=== PATIENT | male | born 1965 | race American Indian/Alaskan Native ===

== ENCOUNTER 2017-07-18 13:58 | Observation (INO) | payer SELFPAY ==
[2017-07-18] MEDS ORDERED: Naproxen 550 mg Tab PO STA (15:33)
[2017-07-18] MEDS ORDERED: Naproxen 550 mg Tab PO ONE (15:48)
--- NOTE | 2017-07-18 17:13 | C.PDOC ---
History Of Present Illness 52 y/o male presents to ED with complaints of right ear pain intermittently for 1 year. (+) decreased hearing. Patient was recently evaluated by ENT and treated with antibiotics, steroids and instructed to get biopsy which he has scheduled at the end of this month. Patient notes pain worsened since Tuesday. Patient denies fever, chills, discharge, headache or any other complaints at this time. Time Seen by Provider: 07/18/17 14:32 Chief Complaint (Nursing): ENT Problem History Per: Patient History/Exam Limitations: None Onset/Duration Of Symptoms: Days Current Symptoms Are (Timing): Still Present Past Medical History Reviewed: Historical Data, Nursing Documentation, Vital Signs Vital Signs: Last Vital Signs Temp 97.7 F 07/18/17 19:50 Pulse 57 L 07/18/17 20:30 Resp 20 07/18/17 19:50 BP 141/91 H 07/18/17 19:50 Pulse Ox 98 07/18/17 19:50 - Medical History PMH: No Chronic Diseases Surgical History: No Surg Hx Family History: States: No Known Family Hx - Social History Hx Tobacco Use: No Hx Alcohol Use: No Hx Substance Use: No - Immunization History Hx Tetanus Toxoid Vaccination: No Hx Influenza Vaccination: No Hx Pneumococcal Vaccination: No Review Of Systems Constitutional: Negative for: Fever, Chills ENT: Positive for: Ear Pain. Negative for: Ear Discharge Cardiovascular: Negative for: Chest Pain Respiratory: Negative for: Shortness of Breath Skin: Negative for: Rash Neurological: Negative for: Weakness, Numbness Physical Exam - Physical Exam Appears: Non-toxic, No Acute Distress Skin: Normal Color, Warm, Dry, No Rash Head: Atraumatic, Normacephalic Eye(s): bilateral: Normal Inspection, EOMI Ear(s): Bilateral: Normal Nose: Normal Oral Mucosa: Moist Throat: Normal, No Erythema, No Exudate Chest: Symmetrical Respiratory: No Accessory Muscle Use Neurological/Psych: Oriented x3, Normal Speech ED Course And Treatment - Laboratory Results Result Diagrams: 07/18/17 17:44 07/18/17 17:44 O2 Sat by Pulse Oximetry: 97 (RA) Pulse Ox Interpretation: Normal - CT Scan/US Mastoids w/o contrast Other Rad Studies (CT/US): Interpreted By Me, Read By Radiologist CT/US Interpretation: PROCEDURE: CT scan temporal bones dated 07/18/2017. HISTORY: Hearing g loss, pain, r/o mastoiditis, include tempo. COMPARISON: None available. TECHNIQUE: High resolution axial images of the temporal bones were obtained. Coronal and sagittal reformats were generated. Radiation dose: Total exam DLP = 757.96 mGy-cm. This CT exam was performed using one or more of the following dose reduction techniques: Automated exposure control, adjustment of the mA and/or kV according to patient size, and/or use of iterative reconstruction technique. FINDINGS: RIGHT TEMPORAL BONE: RIGHT MIDDLE EAR: Normal. RIGHT INNER EAR: Cochlea: Normal. Semicircular canals: Normal. RIGHT MASTOID AIR CELLS: There is subtotal opacification right mastoid air complex with some sparing of the mastoid antrum. Soft tissue also seen fills most of the middle ear canal in circumferentially surrounds the inferior margin of the mid ossicular chain extending into Prussak space as well however the drum spur is intact. The anterior pleural. RIGHT INTERNAL AUDITORY CANAL: Normal. RIGHT EXTERNAL AUDITORY CANAL: Normal. RIGHT VESTIBULAR AND COCHLEAR AQUEDUCT: Normal. OTHER FINDINGS: None. LEFT TEMPORAL BONE: LEFT MIDDLE EAR: Normal. LEFT INNER EAR: Cochlea: Normal. Semicircular canals: Normal. LEFT MASTOID AIR CELLS: Normal. LEFT INTERNAL AUDITORY CANAL: Normal. LEFT EXTERNAL AUDITORY CANAL: Normal. LEFT VESTIBULAR AND COCHLEAR AQUEDUCTS: Normal. OTHER FINDINGS: None. IMPRESSION: Findings consistent with right-sided mastoiditis as above. . 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 - Scribe Statement The provider has reviewed the documentation as recorded by the Carmencita Fierro All medical record entries made by the Carmencita were at my direction and personally dictated by me. I have reviewed the chart and agree that the record accurately reflects my personal performance of the history, physical exam, medical decision making, and the department course for this patient. I have also personally directed, reviewed, and agree with the discharge instructions and disposition.
[2017-07-18] MEDS ORDERED: Sodium Chloride 0.9% 500 ML IV ONE ×2 (17:26→17:59)
[2017-07-18] MEDS ORDERED: cefTRIAXone IV 1 gm in Dextros 50 ML IV ONE (17:27)
[2017-07-18 17:50] LABS: BASO % 0.6 % (0.0-2.0); EOS # 0.1 K/uL (0.0-0.7); EOS % 2.4 % (0.0-4.0); HEMATOCRIT 41.7 % (35.0-51.0); LYMPH # 1.5 K/uL (1.0-4.3); LYMPH % 41.7 % (20.0-40.0); MEAN CELL VOLUME 91.9 fL (80.0-94.0); MEAN CORPUSCULAR HEMOGLOBIN 31.6 pg (27.0-31.0); MEAN CORPUSCULAR HGB CONC 34.4 g/dL (33.0-37.0); MEAN PLATELET VOLUME 7.9 fL (7.2-11.7); MONO # 0.4 K/uL (0.0-0.8); MONO % 11.8 % (0.0-10.0); RED CELL DISTRIBUTION WIDTH 14.2 % (11.5-14.5); WHITE BLOOD COUNT 3.6 K/uL (4.8-10.8)
[2017-07-18] MEDS ORDERED: cefTRIAXone IV 1 gm in Dextros 50 ML IVPB ONE (17:59)
[2017-07-18 18:03] LABS: CHLORIDE 101 mmol/L (98-107); SODIUM 135 mmol/L (132-148)
[2017-07-18 18:04] LABS: POTASSIUM 4.3 mmol/L (3.6-5.2)
[2017-07-18 18:06] LABS: ALB/GLOB RATIO 1.1 (1.0-2.1); ALKALINE PHOSPHATASE 40 U/L (38-126); AST/SGOT 40 U/L (17-59); BILIRUBIN,TOTAL 0.6 mg/dL (0.2-1.3); BLOOD UREA NITROGEN 19 mg/dL (9-20); CARBON DIOXIDE 26 mmol/L (22-30); GFR AFRICAN-AMERICAN > 60; GLUCOSE,RANDOM 76 mg/dL (75-110); TOTAL PROTEIN 7.8 g/dL (6.3-8.3)
[2017-07-18 18:07] LABS: ALT/SGPT 41 U/L (21-72); CALCIUM 9.2 mg/dl (8.6-10.4)
[2017-07-18] MEDS ORDERED: Clindamycin 600mg/50ml NS 600 MG/50 ML BAG IVPB ONE (18:43)
[2017-07-18] MEDS ORDERED: Clindamycin 600mg/50ml D5W 600 MG/50 ML VIAL IVPB SCH (18:45)
[2017-07-18] MEDS ORDERED: Morphine 4 MG/ML VIAL IV ONE (18:58)
[2017-07-18] MEDS ORDERED: Clindamycin 600mg/50ml D5W 600 MG/50 ML VIAL IVPB ONE (19:00)
[2017-07-18] MEDS ORDERED: Morphine 4 MG/ML VIAL ONE (19:07)
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
[2017-07-18 20:57] VITALS: RESP 20
[2017-07-18] MEDS ORDERED: Influenza Vaccine 60 mcg/0.5 mL SYR (4YR UP) IM ONE (21:00)
[2017-07-18] MEDS ORDERED: Pneumococcal 23-Valent Vaccine IM ONE (21:00)
[2017-07-18] MEDS ORDERED: Moxifloxacin IV 400mg/250ml NS 400 MG/250 ML BAG IVPB SCH (21:15)
[2017-07-19 06:20] LABS: BASO % 0.8 % (0.0-2.0); EOS # 0.1 K/uL (0.0-0.7); EOS % 3.1 % (0.0-4.0); HEMATOCRIT 39.1 % (35.0-51.0); LYMPH # 1.7 K/uL (1.0-4.3); LYMPH % 50.7 % (20.0-40.0); MEAN CELL VOLUME 92.1 fL (80.0-94.0); MEAN CORPUSCULAR HEMOGLOBIN 31.2 pg (27.0-31.0); MEAN CORPUSCULAR HGB CONC 33.9 g/dL (33.0-37.0); MEAN PLATELET VOLUME 8.5 fL (7.2-11.7); MONO # 0.4 K/uL (0.0-0.8); MONO % 11.9 % (0.0-10.0); RED CELL DISTRIBUTION WIDTH 14.1 % (11.5-14.5); WHITE BLOOD COUNT 3.4 K/uL (4.8-10.8)
[2017-07-19 07:29] LABS: CHLORIDE 105 mmol/L (98-107); POTASSIUM 4.4 mmol/L (3.6-5.2); SODIUM 136 mmol/L (132-148)
[2017-07-19 07:31] LABS: ALB/GLOB RATIO 1.1 (1.0-2.1); ALKALINE PHOSPHATASE 33 U/L (38-126); ALT/SGPT 38 U/L (21-72); AST/SGOT 32 U/L (17-59); BILIRUBIN,TOTAL 0.5 mg/dL (0.2-1.3); BLOOD UREA NITROGEN 20 mg/dL (9-20); CARBON DIOXIDE 23 mmol/L (22-30); GFR AFRICAN-AMERICAN > 60; TOTAL PROTEIN 6.5 g/dL (6.3-8.3)
[2017-07-19 07:32] LABS: CALCIUM 8.4 mg/dl (8.6-10.4); GLUCOSE,RANDOM 78 mg/dL (75-110)
--- NOTE | 2017-07-19 07:49 | CP.PCM.PN ---
Subjective - Date & Time of Evaluation Date of Evaluation: 07/19/17 Time of Evaluation: 07:00 - Subjective Subjective: Medicine Note for Dr. Luz Patient seen and examined at bedside. Denied fever, chills, headache, chest pain, SOB, abdominal pain, n/v/d/c, or urinary symptoms. Objective - Vital Signs/Intake and Output Vital Signs (last 24 hours): Temp Pulse Resp BP Pulse Ox 97.8 F 56 L 20 133/83 97 07/19/17 07:36 07/19/17 07:36 07/19/17 07:36 07/19/17 07:36 07/19/17 07:36 Intake and Output: 07/19/17 07/19/17 06:59 18:59 Intake Total 50 Balance 50 - Medications Medications: Current Medications Famotidine (Pepcid) 20 mg PO BID SOTO Ceftriaxone Sodium 1 gm/ (Sodium Chloride) 100 mls @ 100 mls/hr IVPB Q12H SOTO Pseudoephedrine HCl (Sudafed Tab) 30 mg PO Q6 SOTO Last Admin: 07/19/17 05:59 Dose: Not Given - Labs Labs: 07/19/17 06:07 07/19/17 06:07 - Additional Findings Additional findings: - Constitutional Appears: No Acute Distress - Head Exam Head Exam: ATRAUMATIC, NORMAL INSPECTION - Eye Exam Eye Exam: EOMI, Normal appearance Pupil Exam: PERRL - ENT Exam ENT Exam: Mucous Membranes Moist - Neck Exam Neck exam: Positive for: Full Rom. Negative for: Lymphadenopathy, Tenderness - Respiratory Exam Respiratory Exam: Clear to Auscultation Bilateral, NORMAL BREATHING PATTERN. absent: Rhonchi, Wheezes, Respiratory Distress - Cardiovascular Exam Cardiovascular Exam: REGULAR RHYTHM, +S1, +S2 - GI/Abdominal Exam GI & Abdominal Exam: Normal Bowel Sounds, Soft. absent: Distended, Mass, Tenderness - Extremities Exam Extremities exam: Positive for: normal inspection. Negative for: calf tenderness, pedal edema, tenderness - Neurological Exam Neurological exam: Alert, Oriented x3 - Psychiatric Exam Psychiatric exam: Normal Affect, Normal Mood - Skin Skin Exam: Dry, Intact, Normal Color, Warm Assessment and Plan - Assessment and Plan (Free Text) Plan: Mastoiditis ENT consulted- Dr. Conrad, help appreciated Facial bones CT: right sided mastoiditis NPO- pending Dr. Conrad's recommendations; ?consider myringotomy or biospy Blood cx: f/u results HIV1&2 Ab: f/u results Started Rocephin 1gm IV Q12H Started Pseudophedrine 30mg PO Q6 Prophylactic measure Pepcid 20mg PO BID Patient has low risk factors and therefore does not need anticoagulation Ambulation, activity as tolerated DW Dr. Luz, Apryl CANTOR, PGY-1
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
[2017-07-19] MEDS: Clindamycin 300 MG in Sodium Chloride 0.9% 50 ML IVPB SCH ×2 (09:45→14:33)
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
[2017-07-19 15:58] VITALS: BP 153/97; PULSE 62; TEMP 98.4; O2SAT 100
--- NOTE | 2017-07-19 17:29 | CON ---
DATE: 07/19/2017 REASON FOR CONSULTATION: Ear pain on the right. HISTORY OF PRESENT ILLNESS: This is a 52-year-old male with right ear pain for days, has been on antibiotics and has recently worsened. There is hearing loss, this is moderate and constant intensity. PAST MEDICAL HISTORY: As noted in the chart by me. MEDICATIONS: As noted in the chart by me. PHYSICAL EXAMINATION HEAD: Atraumatic and normocephalic. FACE: Good facial movements bilaterally. CONSTITUTIONAL: Well fed, well nourished. COMMUNICATION: Communicates well appropriately. EXTERNAL NOSE: No masses. No lesions. No erythema. No edema. EARS: TMs intact on both sides with fluid noted behind the right TM. NECK: Supple. THYROID: No thyromegaly. No goiter. LYMPH NODES: No lymphadenopathy of the neck. ORAL CAVITY AND OROPHARYNX: No masses. No lesions. No erythema. No edema. LABORATORY DATA: CAT scan was reviewed by me which shows otitis media and non-infected mastoiditis since the air cells attic area which we saw in the middle ear to the mastoids are clear. RECOMMENDATIONS: Recommend antibiotics and steroids. If the patient's pain improves, the patient can be discharged home on p.o. antibiotics. Garry Conrad MD
== END 2017-07-19 16:45 | disposition home or self-care (01) ==
LOC: C.ER 13:58 → C.9E 18:38 → C.3T 19:28
PROVIDERS: ADMIT Hospitalist; ATTEND Hospitalist
DX: H70.11 Chronic mastoiditis, right ear (principal); H91.91 Unspecified hearing loss, right ear; J31.0 Chronic rhinitis
CPT/HCPCS: 36415; 70480; 80053; 83036; 85025; 86703; 87040; 96365; 96366; 96367; 96375; 99285; G0378; J0696; J1100; J2270; J2405; J7040

== ENCOUNTER 2018-05-30 01:31 | Emergency (ER) | payer SELFPAY ==
[2018-05-30 01:41] VITALS: O2SAT 95
--- NOTE | 2018-05-30 02:49 | C.PDOC ---
History Of Present Illness 52 year old male presents to the ED c/o intermittent lower back pain for the past month. Patient states he fell and injured his back a month ago. Patient had imagingss done which were negative and was prescribed percocet. Patient states percocet no longer helping with the pain. Patient denies new injury, fall , trauma, weakness, numbness, bowel incontinence, saddle anesthesia. Time Seen by Provider: 05/30/18 01:54 Chief Complaint (Nursing): Back Pain History Per: Patient History/Exam Limitations: no limitations Onset/Duration Of Symptoms: Days Current Symptoms Are (Timing): Still Present Quality Of Discomfort: "Pain" Previous Symptoms: Back Pain Recent travel outside of the [place]: No Additional History Per: Patient Past Medical History Reviewed: Historical Data, Nursing Documentation, Vital Signs Vital Signs: Last Vital Signs Temp 98.2 F 05/30/18 02:50 Pulse 60 05/30/18 02:50 Resp 18 05/30/18 02:50 BP 136/81 05/30/18 02:50 Pulse Ox 95 05/30/18 03:00 - Medical History PMH: Back Problems Surgical History: No Surg Hx Family History: States: Unknown Family Hx - Social History Hx Tobacco Use: No Hx Alcohol Use: No Hx Substance Use: No - Immunization History Hx Tetanus Toxoid Vaccination: No Hx Influenza Vaccination: No Hx Pneumococcal Vaccination: No Review Of Systems Constitutional: Negative for: Fever, Chills Cardiovascular: Negative for: Chest Pain, Palpitations Respiratory: Negative for: Cough, Shortness of Breath Genitourinary: Negative for: Incontinence Musculoskeletal: Positive for: Back Pain Skin: Negative for: Rash Neurological: Negative for: Weakness, Numbness Physical Exam - Physical Exam Appears: Non-toxic, No Acute Distress Skin: Normal Color, Warm, Dry Head: Atraumatic, Normacephalic Eye(s): bilateral: Normal Inspection Oral Mucosa: Moist Neck: Normal ROM, Supple Chest: Symmetrical Cardiovascular: Rhythm Regular Respiratory: Normal Breath Sounds, No Rales, No Rhonchi, No Wheezing Gastrointestinal/Abdominal: Soft, No Tenderness, No Guarding, No Rebound Back: Paraspinal Tenderness (left paraspinal), No Straight Leg Raising Extremity: Normal ROM, No Tenderness, No Swelling Neurological/Psych: Oriented x3, Normal Speech, Normal Motor, Normal Sensation Gait: Steady ED Course And Treatment O2 Sat by Pulse Oximetry: 95 (ON RA) Pulse Ox Interpretation: Normal Progress Note: Plan: - Valium 5 mg PO. - Toradol 30 mg IM. On reassessment, patient is resting comfortably, with improvement of back pain. Patient remains afebrile, with no bony tenderness, extremity numbness or weakness, or abdominal pain. Patient is ambulatory in the emergency department with no signs of discomfort. Patient was advised to follow up with physician/clinic in 1-2 days. Disposition Counseled Patient/Family Regarding: Diagnosis, Need For Followup - Disposition Referrals: Randall Young MD [Medical Doctor] - Disposition: HOME/ ROUTINE Disposition Time: 02:47 Condition: STABLE Additional Instructions: please follow up with your doctor Take meds as directed Return to ER if worse Prescriptions: Cyclobenzaprine [Cyclobenzaprine HCl] 10 mg PO HS #10 tab Ibuprofen [Motrin] 600 mg PO Q6H #20 tab Instructions: Low Back Pain (DC) Forms: [employer] (Northern Irish) - Clinical Impression Clinical Impression: Low back pain - PA / ESCAPEMENT MAKER / Resident Statement MD/DO has reviewed & agrees with the documentation as recorded. - Scribe Statement The provider has reviewed the documentation as recorded by the Scribe Meño Yang All medical record entries made by the Scribe were at my direction and personally dictated by me. I have reviewed the chart and agree that the record accurately reflects my personal performance of the history, physical exam, medical decision making, and the department course for this patient. I have also personally directed, reviewed, and agree with the discharge instructions and disposition.
[2018-05-30 03:01] VITALS: BP 136/81; PULSE 60; RESP 18; TEMP 98.2
== END 2018-05-30 02:51 | disposition home or self-care (01) ==
LOC: C.ER 01:31
DX: M54.5 Low back pain (principal)
CPT/HCPCS: 96372; 99283; J1885